=== PATIENT | male | born 1945 | race Caucasian/White ===

== ENCOUNTER 2016-04-23 18:35 | Emergency (ER) | payer MEDICARE ==
[~2016-04-23] VITALS: Ht 185.4 cm; Wt 162.4 kg
[~2016-04-23 18:35] MED LIST: BENICAR20 MG PO; PREDNISONE10 MG PO; ZOCOR40 MG PO
[2016-04-23] MEDS ORDERED: FLONASE ALLERG9.9 ML NAS (19:41)
[2016-04-23] MEDS ORDERED: ROBITUSSIN AC 110 ML PO (19:41)
[2016-04-23] MEDS ORDERED: CLARITIN10 MG PO (19:41)
== END 2016-04-23 19:54 | disposition home or self-care (01) ==
LOC: ED 18:35
DX: B34.9 Viral infection, unspecified (principal); R03.0 Elevated blood-pressure reading, without diagnosis of hypertension; Z79.52 Long term (current) use of systemic steroids; Z88.0 Allergy status to penicillin; Z88.1 Allergy status to other antibiotic agents; Z88.8 Allergy status to other drugs, medicaments and biological substances

== ENCOUNTER → 2017-01-31 | Outpatient (CLI) | payer MEDICARE ==
[~2017-01-31] MED LIST changes: +CLARITIN10 MG PO; +FLONASE ALLERG9.9 ML NAS; +ROBITUSSIN AC 110 ML PO
== END | disposition home or self-care (01) ==
LOC: RAD 10:57
DX: R07.89 Other chest pain (principal); R06.02 Shortness of breath; R05 Cough; M54.6 Pain in thoracic spine; R09.89 Other specified symptoms and signs involving the circulatory and respiratory systems; Z87.891 Personal history of nicotine dependence

== ENCOUNTER → 2017-10-23 | Outpatient (CLI) | payer MEDICARE | END | disposition home or self-care (01) | LOC: RAD 17:09 | DX: M16.12 Unilateral primary osteoarthritis, left hip (principal) ==

== ENCOUNTER → 2017-11-13 | Outpatient (CLI) | payer MEDICARE ==
[2017-11-13 08:00] LABS: CREATININE 1.07 mg/dL (0.70-1.30)
== END | disposition home or self-care (01) ==
LOC: LAB 02:18 → CT 02:18
PROVIDERS: Radiology Diagnostic Radiology
DX: J43.9 Emphysema, unspecified (principal); K76.0 Fatty (change of) liver, not elsewhere classified; R10.84 Generalized abdominal pain

== ENCOUNTER → 2021-03-22 | Outpatient (CLI) | payer MEDICARE, OTHER ==
[~2021-03-22] MED LIST changes: +ATORVASTATIN CA40 M1 PO; +LOSARTAN-HCTZ1 EAC1 PO
== END | disposition home or self-care (01) ==
LOC: COVID19 16:05
PROVIDERS: ATTEND Internal Medicine
DX: U07.1 COVID-19 (principal)